=== PATIENT | male | born 1935 | race Caucasian/White ===

== ENCOUNTER 2022-02-14 07:35 | Emergency (ER) | payer MEDICARE ==
[~2022-02-14] VITALS: Wt 81.6 kg
[2022-02-14] MEDS ORDERED: PREDNISONE20 M1 PO (08:32)
== END 2022-02-14 08:41 | disposition home or self-care (01) ==
LOC: ED 07:35
DX: L29.9 Pruritus, unspecified (principal); Z91.040 Latex allergy status; Z90.89 Acquired absence of other organs